=== PATIENT | female | born 1985 | race Caucasian/White ===

== ENCOUNTER 2017-06-21 09:13 | Emergency (ER) | payer BC ==
[~2017-06-21] VITALS: Wt 63.5 kg
[2017-06-21] MEDS ORDERED: KENALOG 0.1%80 GM T (09:21)
[2017-06-21] MEDS ORDERED: 'CIPRO500 M1 PO (09:21)
[2017-06-21] MEDS ORDERED: ADDERALL XR 3030 MG PO (09:22)
[2017-06-21 09:35] LABS: BASO % 0.3 % (0.0-1.0); EOS # 0.3 10*3/uL (0.0-0.4); EOS % 3.5 % (1.0-4.0); HEMOGLOBIN 13.4 g/dl (12.0-16.0); LYMPH # 2.4 10*3/uL (1.3-4.4); LYMPH % 25.4 % (27.0-41.0); MEAN CELL VOLUME 90.9 fl (81.0-99.0); MEAN CORPUSCULAR HGB 32.1 pg (27.0-31.0); MEAN CORPUSCULAR HGB CONC 35.3 g/dl (33.0-37.0); MEAN PLATELET VOLUME 9.6 fl (9.6-12.3); MONO # 0.6 10*3/uL (0.1-1.0); MONO % 6.4 % (3.0-9.0); NEUT # 5.9 10*3/uL (2.3-7.9); NEUT % 64.1 % (47.0-73.0); PLATELET COUNT AUTOMATED 329 10*3/uL (130-400); RED BLOOD COUNT 4.18 10*6/uL (4.10-5.10); RED CELL DISTRI WIDTH 12.1 % (0-14.5); WHITE BLOOD COUNT 9.3 10*3/uL (4.8-10.8)
[2017-06-21 09:48] LABS: BILIRUBIN NEGATIVE (NEGATIVE); BLOOD 2+ (NEGATIVE); CLARITY CLOUDY (CLEAR); COLOR YELLOW (YELLOW); GLUCOSE NEGATIVE (NEGATIVE); KETONE NEGATIVE (NEGATIVE); LEUKO ESTERASE NEGATIVE (NEGATIVE); NITRITE NEGATIVE (NEGATIVE); SPECIFIC GRAVITY 1.015 (1.005-1.030); UROBILINOGEN 0.2 E.U./dl (0.2-1.0)
[2017-06-21 09:52] LABS: ALKALINE PHOSPHATASE 80 U/L (45-117); BUN 12 mg/dl (7-24); CHLORIDE 104 mmol/L (98-107); CREATININE 0.84 mg/dL (0.55-1.02); POTASSIUM 4.1 mmol/L (3.5-5.1); SGOT/AST 14 IU/L (3-35); SGPT/ALT 38 U/L (12-78); SODIUM 140 mmol/L (136-145)
[2017-06-21 10:09] LABS: BACTERIA 2+; RBC 16-20 rbc/hpf (0-2)
[2017-06-21 10:10] LABS: EPITHELIAL CELLS 30-40
[2017-06-21] MEDS ORDERED: SEPTDS PO (10:16)
[2017-06-21] MEDS ORDERED: ZOFRAN4 MG PO (10:16)
[2017-06-21] MEDS ORDERED: PERCOCET 5-3251 EACH PO (10:16)
== END 2017-06-21 11:00 | disposition home or self-care (01) ==
LOC: ED 09:13
PROVIDERS: Nurse Practitioner Family
DX: N20.0 Calculus of kidney (principal); R03.0 Elevated blood-pressure reading, without diagnosis of hypertension; N13.30 Unspecified hydronephrosis; Z91.040 Latex allergy status

== ENCOUNTER 2020-12-13 10:26 | Emergency (ER) | payer BC ==
[~2020-12-13] VITALS: Ht 157.4 cm; Wt 65.8 kg
[~2020-12-13 10:26] MED LIST: 'CIPRO500 M1 PO; ADDERALL XR 3030 MG PO; KENALOG 0.1%80 GM T; PERCOCET 5-3251 EACH PO; SEPTDS PO; ZOFRAN4 MG PO
== END 2020-12-13 11:50 | disposition home or self-care (01) ==
LOC: ED 10:26
DX: S86.911A Strain of unspecified muscle(s) and tendon(s) at lower leg level, right leg, initial encounter (principal); Z79.899 Other long term (current) drug therapy; X58.XXXA Exposure to other specified factors, initial encounter; Y93.89 Activity, other specified; Y92.89 Other specified places as the place of occurrence of the external cause; Y99.8 Other external cause status

== ENCOUNTER 2023-04-26 15:41 | Emergency (ER) | payer BC ==
[~2023-04-26] VITALS: Ht 157.4 cm; Wt 57.2 kg
[2023-04-26] MEDS ORDERED: CYMBALTA30 MG PO (16:03)
[2023-04-26 16:37] LABS: BASO % 0.3 % (0.0-1.0); EOS # 0.1 10*3/uL (0.0-0.4); EOS % 0.5 % (1.0-4.0); HEMATOCRIT 38.3 % (37.0-47.0); LYMPH # 2.2 10*3/uL (1.3-4.4); LYMPH % 22.8 % (27.0-41.0); MEAN CELL VOLUME 90.3 fl (81.0-99.0); MEAN CORPUSCULAR HGB 31.4 pg (27.0-31.0); MEAN CORPUSCULAR HGB CONC 34.7 g/dl (33.0-37.0); MEAN PLATELET VOLUME 9.8 fl (9.6-12.3); MONO # 0.5 10*3/uL (0.1-1.0); NEUT % 71.2 % (47.0-73.0); PLATELET COUNT AUTOMATED 316 10*3/uL (130-400); RED BLOOD COUNT 4.24 10*6/uL (4.10-5.10); RED CELL DISTRI WIDTH 12.1 % (0-14.5); WHITE BLOOD COUNT 9.8 10*3/uL (4.8-10.8)
[2023-04-26 16:54] LABS: ALKALINE PHOSPHATASE 75 U/L (46-116); BUN 9 mg/dl (9-23); CHLORIDE 108 mmol/L (98-107); POTASSIUM 3.6 mmol/L (3.4-5.1); SGPT/ALT 10 U/L (5-49); TOTAL PROTEIN 6.6 gm/dL (6.0-8.0)
[2023-04-26] MEDS ORDERED: ONDANSETRON4 MG SL (18:23)
[2023-04-26] MEDS ORDERED: FLOMAX0.4 MG PO (18:23)
[2023-04-26] MEDS ORDERED: SEPTDS PO (18:23)
[2023-04-26] MEDS ORDERED: PERCOCET 5-3251 EACH PO (18:23)
== END 2023-04-26 18:52 | disposition home or self-care (01) ==
LOC: ED 15:41
PROVIDERS: Emergency Medicine
DX: N20.0 Calculus of kidney (principal); R11.10 Vomiting, unspecified; R19.7 Diarrhea, unspecified; Z79.899 Other long term (current) drug therapy

== ENCOUNTER 2023-05-23 00:33 | Emergency (ER) | payer BC ==
[~2023-05-23 00:33] MED LIST changes: +CYMBALTA30 MG PO; +FLOMAX0.4 MG PO; +ONDANSETRON4 MG SL
== END 2023-05-23 02:33 | disposition home or self-care (01) ==
LOC: ED 00:33
DX: N20.9 Urinary calculus, unspecified (principal); J45.909 Unspecified asthma, uncomplicated; Z98.890 Other specified postprocedural states; Z88.7 Allergy status to serum and vaccine

== ENCOUNTER → 2024-05-03 | Day surgery (SDC) | payer BC ==
[~2024-05-03] VITALS: Ht 157 cm; Wt 54.0 kg
[~2024-05-03] MED LIST changes: +Bacitracin Zinc/Neomycin/Pol 15 GM TUBE T ONE; +DEXMEDETOMIDINE HCL 200 MCG/2 ML VIAL IV ONE; +Dexamethasone Sodium Phospha 4 MG/ML VIAL IV ONE; +Ketorolac Tromethamine 30 MG/ML VIAL IV ONE; +LEXAPRO10 MG PO; +Lactated Ringer's Solution 1,000 ML IV ONE; +Lidocaine Hydrochloride 2% 5 ML SDV IM ONE; +Lidocaine Hydrochloride 30 ML VIAL ONE; +Midazolam Hydrochloride 2 MG/2 ML VIAL IV ONE; +Ondansetron Hydrochloride 4 MG/2 ML VIAL IV ONE; +PROPOFOL 200 MG/20 ML VIAL IV ONE; +SODIUM CHLORIDE 0.9% 100 ML IV ONE; +[UNRECOGNIZED DRUG - OTHER]; +fentaNYL CITRATE 100 MCG/2 ML VIAL IV ONE
[2024-05-03 06:58] VITALS: BP 134/84
[2024-05-03 08:24] VITALS: BP 151/94
[2024-05-03 08:56] VITALS: BP 166/95
[2024-05-03 09:03] VITALS: BP 128/77
[2024-05-03 09:28] VITALS: BP 132/76
== END | disposition home or self-care (01) ==
LOC: SDC 04-29 08:45
PROVIDERS: ATTEND Obstetrics & Gynecology
DX: N90.69 Other specified hypertrophy of vulva (principal); J45.909 Unspecified asthma, uncomplicated; K21.9 Gastro-esophageal reflux disease without esophagitis; F41.9 Anxiety disorder, unspecified; F32.A Depression, unspecified; F12.90 Cannabis use, unspecified, uncomplicated; Z87.442 Personal history of urinary calculi; Z98.890 Other specified postprocedural states; Z79.899 Other long term (current) drug therapy; Z88.7 Allergy status to serum and vaccine; Z88.8 Allergy status to other drugs, medicaments and biological substances; Z80.3 Family history of malignant neoplasm of breast; Z82.49 Family history of ischemic heart disease and other diseases of the circulatory system